=== PATIENT | male | born 1995 | race Caucasian/White ===

== ENCOUNTER 2017-06-03 15:49 | Emergency (ER) | payer BC ==
--- NOTE | 2017-06-03 15:56 | UC ---
Respiratory Complaint HPI - History of Current Complaint Stated Complaint: COUGH,KALI,NAUSEA Time Seen by Provider: 06/03/17 15:55 - Allergies/Home Medications Allergies/Adverse Reactions: Allergies Allergy/AdvReac Type Severity Reaction Status Date / Time No Known Allergies Allergy Verified 03/25/16 09:51 PMH/Surg Hx/FS Hx/Imm Hx - Surgical History Surgical History: None - Family History Known Family History: Negative: Diabetes - Social History Alcohol Use: Weekly Alcohol Amount: once a week Substance Use Type: None Smoking Status (MU): Never Smoked Tobacco Discharge - Discharge Plan Condition: Stable Disposition: HOME Referrals: Non Staff,Doctor [Primary Care Provider] -
--- NOTE | 2017-06-03 16:03 | ED ---
Respiratory - HPI Summary HPI Summary: 22 y/o female presents to the urgent care c/o persistent productive cough for the past 2 months. Pt reports symptoms started with the common cold, but lately symptoms is getting worse with SOB, wheezing for the past 2 days. Yesterday he had an episode of vomiting. He has been taking cough OTC syrup. Pt denies fever , chest pain, abdominal pain, N/V/D. Hx of traveling outside the country. Pt is up to date with all vaccines for his age. - History of Current Complaint Chief Complaint: UCRespiratory Stated Complaint: COUGH,KALI,NAUSEA Time Seen by Provider: 06/03/17 15:55 Hx Obtained From: Patient Onset/Duration: Gradual Onset, Lasting Weeks - 2 moths, Still Present Timing: Constant Initial Severity: Mild Current Severity: Moderate Pain Intensity: 0 Character: Wheezing, Cough (Productive), Dyspnea on Exertion Sputum Amount: Moderate Sputum Color: Yellow, Green Aggravating Factor(s): URI Alleviating Factor(s): OTC Medications Associated Signs and Symptoms: SOB, URI, Nasal Congestion - Risk Factors Status Asthmaticus Risk Factors: Negative Pulmonary Embolism Risk Factors: Negative Cardiac Risk Factors: Negative Pseudomonas Risk Factors: Negative Tuberculosis Risk Factors: Negative - Allergy/Home Medications Allergies/Adverse Reactions: Allergies Allergy/AdvReac Type Severity Reaction Status Date / Time No Known Allergies Allergy Verified 06/03/17 16:00 PMH/Surg Hx/FS Hx/Imm Hx Previously Healthy: Yes Respiratory History: Reports: Hx Asthma - Immunization History Immunizations Up to Date: Yes - Family History Known Family History: Positive: None - Pt denies FMHX Negative: Diabetes - Social History Occupation: Student Lives: With Family Alcohol Use: Weekly Alcohol Amount: once a week Substance Use Type: Reports: None Smoking Status (MU): Never Smoked Tobacco Review of Systems Constitutional: Negative Eyes: Negative Positive: Nasal Discharge Cardiovascular: Negative Positive: Shortness Of Breath, Cough - productive and wheezing Gastrointestinal: Negative Genitourinary: Negative Musculoskeletal: Negative Skin: Negative Neurological: Negative Psychological: Normal All Other Systems Reviewed And Are Negative: Yes Physical Exam Triage Information Reviewed: Yes Vital Signs Reviewed: Yes Appearance: Positive: Well-Appearing, No Pain Distress, Well-Nourished - male Skin: Positive: Warm, Dry Head/Face: Positive: Normal Head/Face Inspection Eyes: Positive: EOMI, MELANIE, Conjunctiva Clear ENT: Positive: Normal ENT inspection, Hearing grossly normal, Pharynx normal, Nasal congestion, Nasal drainage - yellowish, TMs normal - B/L, Uvula midline Neck: Positive: Supple, Nontender, No Lymphadenopathy Respiratory/Lung Sounds: Positive: Breath Sounds Present, Rhonchi - Posterior upper lungs with mild rhonchi, no wheezes, no rales Cardiovascular: Positive: Normal, RRR, Pulses are Symmetrical in both Upper and Lower Extremities, S1, S2 Abdomen Description: Positive: Nontender, No Organomegaly, Soft. Negative: CVA Tenderness (R), CVA Tenderness (L) Bowel Sounds: Positive: Present Musculoskeletal: Positive: Normal, Strength/ROM Intact Neurological: Positive: Normal, Sensory/Motor Intact, Alert, Oriented to Person Place, Time, CN Intact II-III Psychiatric: Positive: Normal Disposition - Course Course Of Treatment: 22 y/o female presents to the urgent care c/o persistent productive cough for the past 2 months. Pt reports symptoms started with the common cold, but lately symptoms is getting worse with SOB, wheezing for the past 2 days. Yesterday he had an episode of vomiting. He has been taking cough OTC syrup. Pt denies fever, chest pain, abdominal pain, N/V/D. Hx of traveling outside the country. Pt is up to date with all vaccines for his age. Pt with mild B/L RT posterior lung with rhonchi, no wheezing. Chest X-ray ordered. Impression: No evidence of cardiopulmonary disease. Pt with Bronchitis. Pt Rx Z- tarun PO, Tessalon tabs PO and albuterol inhaler. Advised to increase fluid intake , rest and eat well. If not improvement or worsening of symptoms to go to the ER for further managment. Explained D/C instruction. Pt undertstood and agreed with plan of care. Left the clinic ambulating. - Differential Dx - Cardiopulmonary Differential Diagnoses - Cardiopulmonary: Asthma, Bronchitis, Influenza, Laryngitis, Sinusitis, Other - pneumonia - Diagnoses Provider Diagnoses: Acute bronchitis, Cough Discharge - Discharge Plan Condition: Stable Disposition: HOME Prescriptions: Albuterol HFA INHALER* [Ventolin HFA Inhaler*] 1 - 2 puff INH Q4H PRN #1 mdi PRN Reason: Cough Azithromyxin TARUN (NF) [Z-Tarun (Zithromax) 250 mg tabs #6] 2 tab PO .TODAY, THEN 1 DAILY #6 tab Benzonatate CAP* [Tessalon 100 MG CAP*] 100 mg PO TID PRN #15 cap PRN Reason: Cough Patient Education Materials: Acute Bronchitis (ED) Referrals: [facility] [Outside] - If Needed Non Staff,Doctor [Primary Care Provider] - Additional Instructions: 1-Please take full course of antibiotic to avoid resistance. 2-Take Tessalon PO tabs as directed and use the albuterol inhaler to alleviate sough. Increase fluid intake, rest and eat well. 3- If symptoms do not improve or worsen or your develop SOB with fever and severe wheezing please go immediately to the ER further evaluation and treatment. 4- F/u with your PCP in 2-3 days for further management of asthma
[2017-06-03 16:04] VITALS: BP 109/72
--- NOTE | 2017-06-03 16:37 | RAD ---
INDICATION: Persistent, productive cough COMPARISON: None TECHNIQUE: PA and lateral views of the chest were obtained. FINDINGS: The heart and mediastinum are normal in size and contour. The lungs are grossly clear. There is no evidence of large pleural effusion. Visualized bones are normal for the patient's age. There is no radiographic evidence of free air beneath the diaphragm IMPRESSION: No radiographic evidence of acute cardiopulmonary disease.
== END 2017-06-03 17:08 | disposition home or self-care (01) ==
LOC: UCCORT 15:49
DX: J20.9 Acute bronchitis, unspecified (principal)
CPT/HCPCS: 71020; 99212; G0463

== ENCOUNTER 2018-04-14 19:47 | Emergency (ER) | payer BC ==
--- NOTE | 2018-04-14 19:49 | UC ---
Throat Pain/Nasal Robbie HPI - HPI Summary HPI Summary: 23 yo male presents with sinus congestion and runny nose for the past 2 weeks. Over the last few days has had a dry cough. He has been taking OTC cough drops with no relief. Denies fever, chills, SOB, chest pain, abdominal pain, n/v. - History of Current Complaint Stated Complaint: COUGH/ST Time Seen by Provider: 04/14/18 19:49 Hx Obtained From: Patient Onset/Duration: Gradual Onset - Allergies/Home Medications Allergies/Adverse Reactions: Allergies Allergy/AdvReac Type Severity Reaction Status Date / Time No Known Allergies Allergy Verified 04/14/18 20:07 Home Medications: Home Medications Adalimumab [Humira Pen] 40 mg SQ SEE INSTRUCTIONS 04/14/18 [History Confirmed ] PMH/Surg Hx/FS Hx/Imm Hx - Additional Past Medical History Additional PMH: UC - Surgical History Surgical History: None - Family History Known Family History: Positive: None - Pt denies FMHX Negative: Diabetes - Social History Occupation: Student Lives: With Family Alcohol Use: Weekly Alcohol Amount: once a week Substance Use Type: None Smoking Status (MU): Never Smoked Tobacco - Immunization History Most Recent Influenza Vaccination: none Review of Systems Constitutional: Negative Skin: Negative Eyes: Negative ENT: Nasal Discharge, Sinus Congestion Respiratory: Cough Cardiovascular: Negative Gastrointestinal: Negative Neurological: Negative Psychological: Negative All Other Systems Reviewed And Are Negative: Yes Physical Exam - Summary Physical Exam Summary: GENERAL: NAD. WDWN. No pain distress. SKIN: No rashes, sores, lesions, or open wounds. HEENT: Head: AT/NC Eyes: Conjunctiva clear without inflammation or discharge. Ears: Hearing grossly normal. TMs intact, no bulging, erythema, or edema. Nose: Nasal mucosa pink and moist. NTTP maxillary and frontal sinus. Throat: Posterior oropharynx mild erythema and 3+ tonsillar enlargement. No exudates. Uvula midline. No hoarse voice or muffled voice. NECK: Supple. Nontender. No lymphadenopathy. CHEST: CTAB. No r/r/w. No accessory muscle use. Breathing comfortably and in no distress. CV: RRR. Without m/r/g. Pulses intact. Cap refill <2seconds NEURO: Alert. PSYCH: Age appropriate behavior. Triage Information Reviewed: Yes Vital Signs: Vital Signs: Temp Pulse Resp BP Pulse Ox 97.7 F 72 22 125/56 98 04/14/18 20:09 04/14/18 20:09 04/14/18 20:09 04/14/18 20:09 04/14/18 20:09 Laboratory Tests 04/14/18 20:52 Group A Strep Rapid Positive A Vital Signs Reviewed: Yes Throat Pain/Nasal Course/Dx - Course Course Of Treatment: POC strep positive. Will treat with amoxicillin and tessalon. F/u prn - Differential Dx/Diagnosis Provider Diagnoses: Strep pharyngitis. Cough Discharge - Sign-Out/Discharge Documenting (check all that apply): Patient Departure All imaging exams completed and their final reports reviewed: No Studies - Discharge Plan Condition: Stable Disposition: HOME Prescriptions: Amoxicillin PO (*) [Amoxicillin 500 MG CAP*] 500 mg PO Q12H #20 cap Benzonatate CAP* [Tessalon 100 MG CAP*] 100 mg PO TID PRN #21 cap PRN Reason: Cough Patient Education Materials: Strep Throat (DC) Referrals: Non Staff,Doctor [Medical Doctor] - Additional Instructions: If you develop a fever, shortness of breath, chest pain, new or worsening symptoms - please call your PCP or go to the ED. - Billing Disposition and Condition Condition: STABLE Disposition: Home
[2018-04-14 20:16] VITALS: BP 125/56
[2018-04-14] MEDS ORDERED: Amoxicillin PO (*) 500 MG CAP PO ONE (21:13)
== END 2018-04-14 21:24 | disposition home or self-care (01) ==
LOC: UCCORT 19:47
DX: J02.0 Streptococcal pharyngitis (principal); R05 Cough
CPT/HCPCS: 87651; 99212; A9270-GY; G0463

== ENCOUNTER 2018-05-18 13:44 | Emergency (ER) | payer BC ==
[2018-05-18 14:00] VITALS: BP 110/69
[2018-05-18] MEDS ORDERED: Loperamide CAP* 2 MG PO ONE (14:53)
--- NOTE | 2018-05-18 14:57 | UC ---
Abdominal Pain Female HPI - History of Current Complaint Chief Complaint: UCGI Stated Complaint: DIARRHEA, NAUSEA Time Seen by Provider: 05/18/18 14:17 Pain Intensity: 0 Allergies/Adverse Reactions: Allergies Allergy/AdvReac Type Severity Reaction Status Date / Time No Known Allergies Allergy Verified 05/18/18 13:57 PMH/Surg Hx/FS Hx/Imm Hx - Surgical History Surgical History: None - Family History Known Family History: Positive: None - Pt denies FMHX Negative: Diabetes - Social History Alcohol Use: Weekly Alcohol Amount: once a week Substance Use Type: None Smoking Status (MU): Never Smoked Tobacco - Immunization History Most Recent Influenza Vaccination: none Physical Exam Vital Signs: Initial Vital Signs Temp 97.3 F 05/18/18 13:55 Pulse 79 05/18/18 13:55 Resp 14 05/18/18 13:55 BP 110/69 05/18/18 13:55 Pulse Ox 99 05/18/18 13:55 Discharge - Discharge Plan Condition: Stable Disposition: HOME Patient Education Materials: Loperamide (By mouth), Acute Diarrhea (ED) [facility]errals: [facility] [Outside] - If Needed No Primary Care Phys,NOPCP [Primary Care Provider] - - Billing Disposition and Condition Condition: STABLE Disposition: Home
--- NOTE | 2018-05-18 15:10 | UC ---
Abdominal Pain Male HPI - HPI Summary HPI Summary: Pt presents with c/o of sudden onset of diarrhea. Pt denies fever, chills, generalized malaise. Pt reports he is the only person in his house and all roommates ate same food for dinner. - History of Current Complaint Chief Complaint: UCGI Stated Complaint: DIARRHEA, NAUSEA Time Seen by Provider: 05/18/18 14:17 Hx Obtained From: Patient Onset/Duration: Sudden Onset, Lasting Hours Timing: Constant Severity Initially: Mild Severity Currently: Mild Pain Intensity: 0 Pain Scale Used: 0-10 Numeric Radiates: No Character: Colicy Alleviating Factor(s): Nothing Associated Signs And Symptoms: Positive: Diarrhea - X 6 episodes today - Risk Factors Testicular Torsion: Negative Cardiac Risk Factors: Negative - Allergies/Home Medications Allergies/Adverse Reactions: Allergies Allergy/AdvReac Type Severity Reaction Status Date / Time No Known Allergies Allergy Verified 05/18/18 13:57 PMH/Surg Hx/FS Hx/Imm Hx Previously Healthy: Yes - Surgical History Surgical History: None - Family History Known Family History: Positive: None - Pt denies FMHX Negative: Diabetes - Social History Occupation: Student Lives: With Family Alcohol Use: Weekly Alcohol Amount: once a week Substance Use Type: None Smoking Status (MU): Never Smoked Tobacco Have You Smoked in the Last Year: No - Immunization History Most Recent Influenza Vaccination: none Vaccination Up to Date: Yes Review of Systems Constitutional: Negative Skin: Negative Eyes: Negative ENT: Negative Respiratory: Negative Cardiovascular: Negative Gastrointestinal: Diarrhea Genitourinary: Negative Motor: Negative Neurovascular: Negative Musculoskeletal: Negative Neurological: Negative Psychological: Negative Is Patient Immunocompromised?: No All Other Systems Reviewed And Are Negative: Yes Physical Exam Triage Information Reviewed: Yes Appearance: Well-Appearing Vital Signs: Initial Vital Signs Temp 97.3 F 05/18/18 13:55 Pulse 79 05/18/18 13:55 Resp 14 05/18/18 13:55 BP 110/69 05/18/18 13:55 Pulse Ox 99 05/18/18 13:55 Vital Signs Reviewed: Yes Eye Exam: Normal ENT Exam: Normal Dental Exam: Normal Neck exam: Normal Respiratory Exam: Normal Cardiovascular Exam: Normal Abdominal Exam: Normal Abdomen Description: Positive: Nontender Bowel Sounds: Positive: Present Musculoskeletal Exam: Normal Neurological Exam: Normal Psychological Exam: Normal Skin Exam: Normal Abd Pain Male Course/Dx - Differential Dx/Clinical Impression Differential Diagnosis/HQI/PQRI: Diverticulitis, Other - food poisoning, Provider Diagnoses: gastroenteritis Discharge - Sign-Out/Discharge Documenting (check all that apply): Patient Departure All imaging exams completed and their final reports reviewed: No Studies - Discharge Plan Condition: Stable Disposition: HOME Patient Education Materials: Loperamide (By mouth), Acute Diarrhea (ED) Forms: *School Release Referrals: [facility] [Outside] - If Needed No Primary Care Phys,NOPCP [Primary Care Provider] - - Billing Disposition and Condition Condition: STABLE Disposition: Home
== END 2018-05-18 15:02 | disposition home or self-care (01) ==
LOC: UCCORT 13:44
DX: K52.9 Noninfective gastroenteritis and colitis, unspecified (principal)
CPT/HCPCS: 99211; A9270-GY; G0463

== ENCOUNTER 2019-05-23 13:59 | Emergency (ER) | payer BC ==
--- OUTSIDE RECORDS SUMMARY | 2019-05-23 14:13 | XMS REPORT | Continuity of Care Document ---
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 Provider Date Sprain of ankle Lori Lester PA Onset: 10/15/2016 Strain of peroneal tendon Lori Lester PA Onset: 10/15/2016 Social History Type Date Description Comments Sex Unknown Tobacco Use Start: Unknown Never Smoked Cigarettes ETOH Use Currently consumes alcohol socially Tobacco Use Start: Unknown Patient has never smoked Recreational Drug Use Marijuana Allergies, Adverse Reactions, Alerts Description No Known Drug Allergies Medications Active Medications SIG Qnty Indications Ordering Provider Date Diclofenac Sodium take 1 tablet by Jihan Irving MD 04/13/2019 75mg mouth twice Tablets DR daily with food Humira every other week Unknown 40mg/0.4ML PSKT Immunizations Description No Information Available Vital Signs Date Vital Result Comment 04/24/2019 3:42pm BP Systolic 114 mmHg BP Diastolic 63 mmHg Body Temperature 96.0 F Heart Rate 85 /min Height 74 inches 6'2" Weight 184.00 lb BMI (Body Mass Index) 23.6 kg/m2 BSA (Body Surface Area) 2.10 m2 [place] body weight in kilograms 86 kg O2 % BldC Oximetry 98 % 04/13/2019 8:22am BP Systolic Sitting Left Arm 102 mmHg BP Diastolic Sitting Left Arm 68 mmHg Body Temperature 97.2 F Heart Rate 83 /min O2 % BldC Oximetry 97 % Results Description No Information Available Procedures Description No Information Available Medical Devices Description No Information Available Encounters Type Date Location Provider Dx Diagnosis Office Visit 04/24/2019 Orthopaedic Office Nicol Cr S93.421A Sprain of 3:30p S., [facility] deltoid ligament of right ankle, initial encounter M25.571 Pain in right ankle and joints of right foot Office Visit 04/13/2019 8:15a Orthopaedic Office Nicol Cr M25.571 Pain in right S., [facility] ankle and joints of right foot S93.421A Sprain of deltoid ligament of right ankle, initial encounter Y93.62 Activity, danish flag or touch football Assessments Date Code Description Provider 04/24/2019 S93.421A Sprain of deltoid ligament of right CrNicol S., [facility] ankle, initial encounter 04/24/2019 M25.571 Pain in right ankle and joints of right Nicol Cr S., [facility] foot 04/13/2019 M25.571 Pain in right ankle and joints of right CrNicol S., [facility] foot 04/13/2019 S93.421A Sprain of deltoid ligament of right Nicol Cr S., [facility] ankle, initial encounter 04/13/2019 Y93.62 Activity, danish flag or touch Nicol Cr S., [facility] football Plan of Treatment No Information Available Functional Status Description No Information Available Mental Status Description No Information Available Referrals Description No Information Available
--- OUTSIDE RECORDS SUMMARY | 2019-05-23 14:13 | XMS REPORT | Continuity of Care Document ---
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 Provider Date Sprain of [...] Available Vital Signs Date Vital Result Comment 04/13/2019 8:22am BP Systolic Sitting Left Arm 102 mmHg BP Diastolic Sitting Left Arm 68 mmHg Body Temperature 97.2 F Heart Rate 83 /min O2 % BldC Oximetry 97 % 10/15/2016 2:04pm BP Systolic Sitting Left Arm 110 mmHg BP Diastolic Sitting Left Arm 80 mmHg Height 74 inches 6'2" Weight 164.00 lb BMI (Body Mass Index) 21.1 kg/m2 BSA (Body Surface Area) 2.00 m2 [place] body weight in kilograms 86 kg Results Description No Information Available Procedures Description No Information Available Medical Devices Description No Information Available Encounters Type Date Location Provider Dx Diagnosis Office Visit 04/13/2019 Orthopaedic Office Nicol Cr S93.421A Sprain of 8:15a BRITT Anderson deltoid ligament of right ankle, initial encounter M25.571 Pain in right ankle and joints of right foot Assessments Date Code Description Provider 04/13/2019 S93.421A Sprain of deltoid ligament of right Nicol Cr [facility] ankle, initial encounter 04/13/2019 M25.571 Pain in right ankle and joints of right Nicol Cr [facility] foot Plan of Treatment Future Appointment(s):04/27/2019 8:15 am - Nicol Cr [facility] at [facility]opaedic [id number]/13/2019 - Nicol Cr, [facility]93.421A Sprain of deltoid ligament of right ankle, initial [id number] Pain in right ankle and joints of right footAllNew Medication:Diclofenac Sodium 75 mg - take 1 tablet by mouth twice daily with food Functional Status Description No Information Available Mental Status Description No Information Available Referrals Description No Information Available
[2019-05-23 14:27] VITALS: BP 107/50
--- NOTE | 2019-05-23 15:02 | UC ---
Lower Extremity/Ankle HPI - HPI Summary HPI Summary: 24-year-old male presents with complaints of right foot pain. States approximately one and half weeks ago he accidentally kicked a dresser with his right foot while wearing a shoe. States he has been having pain across the top of his foot right at the base of the toes. States he initially had some swelling of the foot which has since subsided. States pain worsens with walking. Has been taking [id number] analgesics with some relief in the pain. Denies any numbness or tingling. - History of Current Complaint Chief Complaint: UCLowerExtremity Stated Complaint: RT FOOT INJURY Time Seen by Provider: 05/23/19 14:26 Hx Obtained From: Patient Pain Intensity: 7 - Allergies/Home Medications Allergies/Adverse Reactions: Allergies Allergy/AdvReac Type Severity Reaction Status Date / Time No Known Allergies Allergy Verified 05/23/19 14:27 PMH/Surg Hx/FS Hx/Imm Hx Previously Healthy: Yes - Denies sigificant PMH - Surgical History Surgical History: None - Family History Known Family History: Positive: Non-Contributory - Social History Occupation: Student Lives: Dormitory/Roommates Alcohol Use: Weekly Alcohol Amount: once a week Substance Use Type: None Smoking Status (MU): Never Smoked Tobacco Have You Smoked in the Last Year: No - Immunization History Most Recent Influenza Vaccination: none Vaccination Up to Date: Yes Review of Systems All Other Systems Reviewed And Are Negative: Yes Constitutional: Positive: Negative Skin: Negative: Bruising Respiratory: Positive: Negative Cardiovascular: Positive: Negative Gastrointestinal: Positive: Negative Genitourinary: Positive: Negative Motor: Negative: Weakness Neurovascular: Negative: Decreased Sensation Musculoskeletal: Positive: Other: - See HPI Neurological: Positive: Negative Is Patient Immunocompromised?: No Physical Exam - Summary Physical Exam Summary: GENERAL APPEARANCE: Well developed, well nourished, alert and cooperative, and appears to be in no acute distress. CARDIAC: Normal S1 and S2. No S3, S4 or murmurs. Rhythm is regular. There is no peripheral edema, cyanosis or pallor. Extremities are warm and well perfused. Capillary refill is less than 2 seconds. Peripheral pulses intact. LUNGS: Clear to auscultation without rales, rhonchi, wheezing or diminished breath sounds. ABDOMEN: Positive bowel sounds. Soft, nondistended, nontender. No guarding or rebound. No masses or hepatosplenomegally. MUSKULOSKELETAL: ROM intact to all extremities. No joint erythema or tenderness. Normal muscular development. Normal gait. EXTREMITIES: Mild tenderness to the mid dorsal foot without gross deformity, ecchymosis, or edema. Circulation and sensation were intact. SKIN: Skin normal color, texture and turgor with no lesions or eruptions. Triage Information Reviewed: Yes Vital Signs: Initial Vital Signs Temp 99.0 F 05/23/19 14:22 Pulse 99 05/23/19 14:22 Resp 16 05/23/19 14:22 BP 107/50 05/23/19 14:22 Pulse Ox 99 05/23/19 14:22 Vital Signs Reviewed: Yes Diagnostics - Radiology No standard instances Radiology Interpretation Completed By: Radiologist Summary of Radiographic Findings: Order Information: FOOT RIGHT 3+ VWS. INDICATION: Right foot injury. TECHNIQUE: 3 views of the right foot were obtained. FINDINGS: The bones are in normal alignment. No fracture is seen. Joint spaces appear maintained. IMPRESSION: NO EVIDENCE FOR FRACTURE. Lower Extremity Course/Dx - Course Course Of Treatment: 24-year-old male presents with complaints of right foot pain. States approximately one and half weeks ago he accidentally kicked a dresser with his right foot while wearing a shoe. States he has been having pain across the top of his foot right at the base of the toes. States he initially had some swelling of the foot which has since subsided. States pain worsens with walking. Has been taking [id number] analgesics with some relief in the pain. Denies any numbness or tingling. Afebrile. Vital signs stable. Patient had some mild tenderness to the mid dorsal foot without gross deformity , ecchymosis, or edema. Circulation and sensation were intact. X-ray showed no acute fracture. Reviewed results with the patient. Recommending conservative treatment for a right foot sprain including [id number] NSAIDs and RICE. He was placed in a postop shoe by the RN. He is to follow-up with orthopedic surgery in one week if symptoms do not improve. Anticipatory guidance and warning symptoms were reviewed with the patient. Verbalizes understanding and agrees with plan of care. - Differential Dx/Diagnosis Differential Diagnosis/HQI/PQRI: Contusion, Fracture (Closed), Sprain Provider Diagnosis: Right foot sprain Discharge ED - Sign-Out/Discharge Documenting (check all that apply): Patient Departure All imaging exams completed and their final reports reviewed: Yes - Discharge Plan Condition: Stable Disposition: HOME Patient Education Materials: Foot Sprain (ED) Forms: *Physical Education Release Referrals: No Primary Care Phys,NOPCP [Primary Care Provider] - Sebastian Prado MD [Medical Doctor] - Additional Instructions: The x-ray performed in the clinic today showed no evidence of a fracture. Rest the foot as much as possible. Use the post-op shoe provided to you until you are pain free. You may remove to shower and sleep but should wear at all other times. Apply ice to the affected area for 15-20 minutes at least 4 times a day to help with the pain and swelling. Elevate the foot to help reduce swelling. Take ibuprofen (Advil, Motrin) or naproxen (Aleve) according to directions as needed for pain. Follow up with orthopedic surgery in 7 days if symptoms do not improve. Seek immediate medical attention if you have severe pain not managed with pain medication, you are unable to walk or bear any weight, develop numbness or tingling in the foot or toes, or have any worsening of symptoms. - Billing Disposition and Condition Condition: STABLE Disposition: Home
== END 2019-05-23 15:16 | disposition home or self-care (01) ==
LOC: UCCORT 13:59
DX: S93.601A Unspecified sprain of right foot, initial encounter (principal); W22.8XXA Striking against or struck by other objects, initial encounter; Y92.9 Unspecified place or not applicable
CPT/HCPCS: 99211; G0463